=== PATIENT | male | born 1975 | race Caucasian/White ===

== ENCOUNTER 2019-03-22 13:18 | Emergency (ER) | payer BC ==
[~2019-03-22] VITALS: Ht 182.9 cm; Wt 74.8 kg
[2019-03-22 13:18] VITALS: BP 112/70
[2019-03-22] MEDS ORDERED: MELO7.5T29 PO (13:50)
[2019-03-22] MEDS ORDERED: AMOX500T PO (13:50)
[2019-03-22] MEDS ORDERED: TRAM50TA PO (13:50)
--- NOTE | 2019-03-22 13:50 | PHYS DOC ---
Past History Past Medical History: No Pertinent History Past Surgical History: No Surgical History Smoking: Cigarettes Alcohol Use: Occasionally Drug Use: Marijuana Adult General Chief Complaint Chief Complaint: DENTAL PROBLEM HPI HPI Patient is a 43-year-old male presents with worsening right lower dental pain for the past 2-3 days. Patient has long-standing dental issue and is pending a root canal. No fever. Increased pain with cold as well as touch. No relief with home medicines. No fever. No foul taste in the mouth. No difficulty swallowing. Pain is moderate to severe.[] Review of Systems Review of Systems Constitutional: Denies fever or chills [] Eyes: Denies change in visual acuity, redness, or eye pain [] HENT: Denies nasal congestion or sore throat [] Respiratory: Denies cough or shortness of breath [] Cardiovascular: No chest pain or palpitations[] GI: Denies abdominal pain, nausea, vomiting, bloody stools or diarrhea [] : Denies dysuria or hematuria [] Musculoskeletal: Denies back pain or joint pain [] Integument: Denies rash or skin lesions [] Neurologic: Denies headache, focal weakness or sensory changes [] Endocrine: Denies polyuria or polydipsia [] All other systems were reviewed and found to be within normal limits, except as documented in this note. Allergies Allergies Allergies Coded Allergies Type Severity Reaction Last Updated Verified No Known Drug Allergies 03/22/19 No Physical Exam Physical Exam Constitutional: Well developed, well nourished, no acute distress, non-toxic appearance. [] HENT: Normocephalic, atraumatic, bilateral external ears normal, oropharynx moist, no oral exudates, nose normal. Widespread disease of the lower teeth, too th #17 broken at the base, tooth #31 broken at the base, tenderness to percussion. Tooth #30 missing. No tongue swelling, no base of the tongue edema, no uvular deviation[] Eyes: PERRLA, EOMI, conjunctiva normal, no discharge. [] Neck: Normal range of motion, no tenderness, supple, no stridor. No cervical lymphadenopathy [] Cardiovascular:Heart rate regular rhythm, no murmur [] Lungs & Thorax: Bilateral breath sounds clear to auscultation [] Abdomen: Not examined. [] Skin: Warm, dry, no erythema, no rash. [] Back: No tenderness, no CVA tenderness. [] Extremities: No tenderness, no cyanosis, no clubbing, ROM intact, no edema. [] Neurologic: Alert and oriented X 3, normal motor function, normal sensory function, no focal deficits noted. [] Psychologic: Affect normal, judgement normal, mood normal. [] Current Patient Data Vital Signs Vital Signs Date Time Temp Pulse Resp B/P (MAP) Pulse Ox O2 Delivery O2 Flow Rate FiO2 03/22/19 13:18 98.4 80 16 98 03/22/19 13:18 Room Air EKG EKG [] Radiology/Procedures Radiology/Procedures [] Course & Med Decision Making Course & Med Decision Making Pertinent Labs and Imaging studies reviewed. (See chart for details) Medical decision making: Patient with dental pain, possible periapical abscess given the condition of his teeth. No evidence of a drainable abscess at this time. Nontoxic patient. We'll treat this with antibiotics as well as pain medication. Patient does have follow-up in 5 days with his dentist.[] Dragon Disclaimer Dragon Disclaimer This electronic medical record was generated, in whole or in part, using a voice recognition dictation system. Departure Departure: Impression: Primary Impression: Dental abscess Disposition: HOME, SELF-CARE Condition: IMPROVED Referrals: [facility] (PCP) Patient Instructions: Dental Abscess Additional Instructions: Follow-up with your dentist as scheduled. Take the medication as prescribed. Return to the ER if worsening pain, fever of more than 101, difficulty sw allowing, or any other concerns. Scripts Tramadol Hcl (TRAMADOL HCL) 50 Mg Tablet 50 MG PO PRN Q6HRS PRN for PAIN, #20 TAB Prov: MALISSA DANIEL DO 03/22/19 Meloxicam (MELOXICAM) 7.5 Mg Tablet 7.5 MG PO DAILY for PAIN, #20 TAB Prov: MALISSA DANIEL DO 03/22/19 Amoxicillin (AMOXICILLIN) 500 Mg Tablet 1 TAB PO TID for DENTAL INFECTION, #30 TAB Prov: MALISSA DANIEL DO 03/22/19 MALISSA DANIEL DO Mar 22, 2019 13:50
== END 2019-03-22 13:52 | disposition home or self-care (01) ==
LOC: ER 13:18 → EDSEX 13:18 → EDBD 13:18 → ER 13:52
DX: K04.7 Periapical abscess without sinus (principal); F17.210 Nicotine dependence, cigarettes, uncomplicated
CPT/HCPCS: 99283